=== PATIENT | male | born 1975 | race Two or more races ===

== ENCOUNTER 2021-07-29 12:20 | Emergency (ER) | payer OTHER ==
[2021-07-29 12:49] VITALS: BP 128/70; PULSE 83; TEMP 98.3; BMI 25.7
== END 2021-07-29 14:28 | disposition home or self-care (01) ==
LOC: JER 12:20
PROC: 0H9BXZZ Drainage of Right Upper Arm Skin, External Approach (ICD-10-PCS; principal; 2021-07-29)
DX: L02.411 Cutaneous abscess of right axilla (principal)
CPT/HCPCS: 87070; 87205; 99283-25

== ENCOUNTER 2021-07-31 14:26 | Emergency (ER) | payer OTHER ==
[2021-07-31 15:10] VITALS: BP 110/70; PULSE 70; TEMP 98.1; BMI 24.7
[2021-07-31] MEDS ORDERED: BACITRACIN 15 GM TUBE TOPICAL OINTMENT ONE (15:35)
== END 2021-07-31 15:49 | disposition home or self-care (01) ==
LOC: JERFT 14:26
DX: Z48.00 Encounter for change or removal of nonsurgical wound dressing (principal)
CPT/HCPCS: 99281-25

== ENCOUNTER 2021-08-02 16:48 | Emergency (ER) | payer OTHER ==
[2021-08-02 16:56] VITALS: BP 121/60; PULSE 77; TEMP 98; BMI 24.7
== END 2021-08-02 18:43 | disposition home or self-care (01) ==
LOC: JERFT 16:48 → JER 16:48 → JERFT 18:43
DX: L02.411 Cutaneous abscess of right axilla (principal); Z48.01 Encounter for change or removal of surgical wound dressing
CPT/HCPCS: 99281-25

== ENCOUNTER 2022-06-16 17:35 | Emergency (ER) | payer OTHER ==
[2022-06-16 18:05] VITALS: BP 107/60; PULSE 84; RESP 18; TEMP 98.1; BMI 26.7
== END 2022-06-16 18:53 | disposition home or self-care (01) ==
LOC: JERFT 17:35
DX: M54.2 Cervicalgia (principal); V49.9XXA Car occupant (driver) (passenger) injured in unspecified traffic accident, initial encounter
CPT/HCPCS: 99283-25